=== PATIENT | female | born 1945 | race Caucasian/White ===

== ENCOUNTER 2016-08-23 16:27 | Emergency (ER) | payer OTHER ==
[~2016-08-23] VITALS: Ht 165.1 cm; Wt 96.0 kg
[~2016-08-23 16:27] MED LIST: ASPI81TA82 PO; CANA100T; CYCL-36 PO; FLAG250T PO; IBUP-232 PO; OMEP20TA39 PO; ZOCO40TA PO
[2016-08-23 16:29] VITALS: BP 136/71; PULSE 107; RESP 15; TEMP 97.5; O2SAT 99
--- NOTE | 2016-08-23 16:37 | PD ---
Physical Exam Time Seen by Provider: 16:36 Narrative 70 y/o female here with nausea/vomiting for 2 months. Several pound weight loss. Vital signs reviewed. Seen at triage desk. Awaiting bed placement. Data Data Last Documented VS Vital Signs Date Time Temp Pulse Resp B/P Pulse Ox O2 Delivery O2 Flow Rate FiO2 08/23/16 16:29 97.5 107 15 136/71 99 MDM Medical Record Reviewed: Yes Supervised Visit with HALINA: Thee Mendez August 23, 2016 16:37
[2016-08-23] MEDS ORDERED: OMEP20TA PO (17:56)
[2016-08-23] MEDS ORDERED: CANA300T PO (17:56)
[2016-08-23] MEDS ORDERED: SIMV40TA PO (17:56)
[2016-08-23] MEDS ORDERED: SODIUM CHLORIDE 0.9% FLUSH 10 ML FLUSH IV FLUSH PRN (18:15)
[2016-08-23] MEDS ORDERED: ONDANSETRON HCL 4 MG/2 ML VIAL IVP ONE (18:15)
--- NOTE | 2016-08-23 18:21 | PD ---
HPI Chief Complaint: GI Complaint Time Seen by Provider: 17:52 Travel History International Travel<30 days: No Contact w/Intl Traveler<30days: No Traveled to known affect area: No History of Present Illness HPI The patient is a 70-year-old female who presents to the emergency department for nausea, vomiting, weight loss. The patient states her symptoms started in June after she was switched from metformin to Invokana for her diabetes. The patient states metformin caused her diarrhea so they change medications. The patient states she has had approximately a 23 pound weight loss over the last month and a half. The patient was evaluated by her primary physician, Dr. Dickens, who ordered outpatient labs and ultrasound of the abdomen. The patient thinks that some of her labs were "elevated ", but does not know specific labs or numbers. The patient also states he ultrasound of her abdomen revealed a "fatty liver ", but no other findings. The patient does have a history of previous cholecystectomy, appendectomy, hysterectomy, and section 2. The patient denies any known history pancreatitis, does have a family history of pancreatic cancer and ovarian cancer. PFSH Past Medical History Cancer: Yes (SKIN) High Cholesterol: Yes Diabetes: Yes Patient Takes Glucophage: No GERD: Yes ?: Not Past Surgical History Appendectomy: Yes Cholecystectomy: Yes Hysterectomy: Yes Other Surgery: Yes (LEFT MAXILLARY GLAND REMOVED) Social History Alcohol Use: Yes (OCC) Tobacco Use: No Substance Use: No (hx of etoh abuse, quit 1982) Allergies-Medications (Allergen,Severity, Reaction): Coded Allergies: Asacol (Verified Allergy, Severe, Anaphylaxis, 08/23/16) Metformin (Verified Allergy, Severe, DIARRHEA, 08/23/16) Penicillin (Verified Allergy, Intermediate, HIVES, 08/23/16) Sulfa (Verified Allergy, Intermediate, HIVES, 08/23/16) Codeine (Verified Allergy, Mild, UNKNOWN, 08/23/16) Reported Meds & Prescriptions Reported Meds & Active Scripts Active Zofran Odt (Ondansetron Odt) 4 Mg Tab 4 Mg SL Q6HR PRN Keflex (Cephalexin) 500 Mg Cap 500 Mg PO Q8H Reported Omeprazole 20 Mg Tab 20 Mg PO DAILY Simvastatin 40 Mg Tab 40 Mg PO HS Invokana (Canagliflozin) 300 Mg Tab 300 Mg PO DAILY Take before 1st meal of day. Review of Systems Except as stated in HPI: all other systems reviewed are Neg General / Constitutional: Positive: Weight Loss, No: Fever HENT: No: Lightheadedness Respiratory: No: Shortness of Breath Gastrointestinal: Positive: Nausea, Vomiting, Abdominal Pain, Loss of Appetite , No: Diarrhea, Constipation, Changes in Bowel Habits Genitourinary: No: Dysuria Musculoskeletal: No: Weakness Neurologic: No: Weakness, Dizziness Physical Exam Narrative GENERAL: Awake, alert, very pleasant 70-year-old female who appears her stated age and is in no acute respiratory distress. SKIN: Focused skin assessment warm/dry. HEAD: Atraumatic. Normocephalic. EYES: Pupils equal and round. No scleral icterus. No injection or drainage. ENT: No nasal bleeding or discharge. Dry mucous membranes.. NECK: Trachea midline. No JVD. CARDIOVASCULAR: Regular, tachycardic with a heart rate of 105. RESPIRATORY: No accessory muscle use. Clear to auscultation. Breath sounds equal bilaterally. GASTROINTESTINAL: Abdomen soft, non-tender, nondistended. No rebound tenderness. No guarding or rigidity. MUSCULOSKELETAL: No obvious deformities. No clubbing. No cyanosis. No edema. NEUROLOGICAL: Awake and alert. No obvious cranial nerve deficits. Motor grossly within normal limits. Normal speech. PSYCHIATRIC: Appropriate mood and affect; insight and judgment normal. Data Data Last Documented VS Vital Signs Date Time Temp Pulse Resp B/P Pulse Ox O2 Delivery O2 Flow Rate FiO2 08/23/16 20:55 73 20 129/66 95 08/23/16 20:09 Room Air 08/23/16 16:29 97.5 Orders Complete Blood Count With Diff (08/23/16 18:15) Comprehensive Metabolic Panel (08/23/16 18:15) Lipase (08/23/16 18:15) Lactic Acid (08/23/16 18:15) Urinalysis - C+S If Indicated (08/23/16 18:15) Ct Abd/Pel W Iv Contrast(Rout) (08/23/16 18:15) Iv Access Insert/Monitor (08/23/16 18:15) Ecg Monitoring (08/23/16 18:15) Oximetry (08/23/16 18:15) Ondansetron Inj (Zofran Inj) (08/23/16 18:15) Sodium Chloride 0.9% Flush (Ns Flush) (08/23/16 18:15) Urine Culture (08/23/16 19:00) Ceftriaxone Inj (Rocephin Inj) (08/23/16 19:45) Iohexol 350 Inj (Omnipaque 350 Inj) (08/23/16 19:55) Labs Laboratory Tests Test 08/23/16 08/23/16 18:38 19:00 White Blood Count 11.4 TH/MM3 Red Blood Count 5.38 MIL/MM3 Hemoglobin 14.9 GM/DL Hematocrit 46.1 % Mean Corpuscular Volume 85.5 FL Mean Corpuscular Hemoglobin 27.6 PG Mean Corpuscular Hemoglobin 32.3 % Concent Red Cell Distribution Width 14.2 % Platelet Count 293 TH/MM3 Mean Platelet Volume 9.5 FL Neutrophils (%) (Auto) 76.9 % Lymphocytes (%) (Auto) 16.3 % Monocytes (%) (Auto) 5.5 % Eosinophils (%) (Auto) 0.4 % Basophils (%) (Auto) 0.9 % Neutrophils # (Auto) 8.8 TH/MM3 Lymphocytes # (Auto) 1.9 TH/MM3 Monocytes # (Auto) 0.6 TH/MM3 Eosinophils # (Auto) 0.0 TH/MM3 Basophils # (Auto) 0.1 TH/MM3 CBC Comment DIFF FINAL Differential Comment Sodium Level 138 MEQ/L Potassium Level 3.7 MEQ/L Chloride Level 100 MEQ/L Carbon Dioxide Level 27.0 MEQ/L Anion Gap 11 MEQ/L Blood Urea Nitrogen 19 MG/DL Creatinine 1.17 MG/DL Estimat Glomerular Filtration 46 ML/MIN Rate Random Glucose 264 MG/DL Lactic Acid Level 1.4 mmol/L Calcium Level 8.9 MG/DL Total Bilirubin 0.5 MG/DL Aspartate Amino Transf 34 U/L (AST/SGOT) Alanine Aminotransferase 42 U/L (ALT/SGPT) Alkaline Phosphatase 157 U/L Total Protein 8.3 GM/DL Albumin 3.8 GM/DL Lipase 122 U/L Urine Color LIGHT-YELLOW Urine Turbidity CLEAR Urine pH 5.5 Urine Specific [place] 1.040 Urine Protein NEG mg/dL Urine Glucose (UA) 1000 mg/dL Urine Ketones TRACE mg/dL Urine Occult Blood NEG Urine Nitrite POS Urine Bilirubin NEG Urine Urobilinogen LESS THAN 2.0 MG/DL Urine Leukocyte Esterase NEG Urine RBC 4 /hpf Urine WBC 1 /hpf Urine Squamous Epithelial 3 /hpf Cells Urine Bacteria MANY /hpf Microscopic Urinalysis Comment CULTURE INDICATED MDM Medical Decision Making Medical Screen Exam Complete: Yes Emergency Medical Condition: Yes Medical Record Reviewed: Yes Differential Diagnosis Differential diagnosis includes gastritis, peptic ulcer disease, gastroparesis, retained biliary stone, pancreatic cancer, ovarian cancer, IBS, dehydration, electrolyte abnormality. Narrative Course IV was established, labs are drawn and sent, and the patient was placed on cardiac telemetry monitoring and continuous pulse oximetry monitoring. The patient was administered Zofran and IV fluids. CT of the abdomen and pelvis with IV and by mouth contrast was ordered to evaluate for possible pancreatic cancer and/or gastric cancers patient's symptoms been ongoing for 6 weeks with significant weight loss. The patient was signed out to the oncoming physician, Dr. Nava at 7 PM. Diagnosis Primary Impression: Nausea & vomiting Qualified Code: R11.2 - Nausea and vomiting, intractability of vomiting not specified, unspecified vomiting type Additional Impression: Unintentional weight loss Scripts Ondansetron Odt (Zofran Odt)4 Mg Tab4 Mg SL Q6HR PRN (Nausea/Vomiting) #30 TAB Ref 0 Prov:Daysi Nava MD 08/23/16 Cephalexin (Keflex)500 Mg [id number] Mg PO Q8H #30 CAP Ref 0 Prov:Daysi Nava MD 08/23/16 Condition: Stable Tyron Garcia MD August 23, 2016 18:21
[2016-08-23 18:41] VITALS: BP 155/66; PULSE 89; RESP 17; O2SAT 96
[2016-08-23 18:57] LABS: AUTOMATED NEUTROPHIL # 8.8 TH/MM3 (1.8-7.7); BASOPHIL # 0.1 TH/MM3 (0-0.2); BASOPHIL % 0.9 % (0.0-2.0); EOSINOPHIL % 0.4 % (0.0-4.0); HEMATOCRIT 46.1 % (35.0-46.0); HEMO FLAGS DIFF FINAL; LYMPH % 16.3 % (9.0-44.0); LYMPHOCYTE # 1.9 TH/MM3 (1.0-4.8); MEAN CELL VOLUME 85.5 FL (80.0-100.0); MEAN CORPUSCULAR HEMOGLOBIN 27.6 PG (27.0-34.0); MEAN CORPUSCULAR HGB CONC 32.3 % (32.0-36.0); MONO % 5.5 % (0.0-8.0); NEUT % 76.9 % (16.0-70.0); PLATELET COUNT 293 TH/MM3 (150-450); RED BLOOD COUNT 5.38 MIL/MM3 (4.00-5.30); RED CELL DISTRIBUTION WIDTH 14.2 % (11.6-17.2); WHITE BLOOD COUNT 11.4 TH/MM3 (4.0-11.0)
[2016-08-23 19:06] LABS: ANION GAP 11 MEQ/L (5-15); AST (GOT) 34 U/L (15-37); BLOOD UREA NITROGEN 19 MG/DL (7-18); CHLORIDE 100 MEQ/L (98-107); GLOMERULAR FILTRATION RATE 46 ML/MIN (>89); POTASSIUM 3.7 MEQ/L (3.5-5.1); SODIUM (NA) 138 MEQ/L (136-145)
[2016-08-23 19:09] LABS: ALKALINE PHOSPHATASE 157 U/L (45-117); ALT (GPT) 42 U/L (10-53); TOTAL BILIRUBIN ADULT 0.5 MG/DL (0.2-1.0)
[2016-08-23 19:25] LABS: BACTERIA, URINE MANY /hpf; BLOOD, URINE NEG (NEG); COMMENT (UR) CULTURE INDICATED; CULTURE IF INDICATED CULTURE INDICATED; GLUCOSE,URINE 1000 mg/dL (NEG); KETONE, URINE TRACE mg/dL (NEG); PH, URINE 5.5 (5.0-8.5); SQUAMOUS EPITHELIAL CELL URINE 3 /hpf (0-5); URINE COLOR LIGHT-YELLOW (YELLW/STRAW)
[2016-08-23 19:26] LABS: NITRITE,URINE POS (NEG)
[2016-08-23] MEDS ORDERED: cefTRIAXone INJ 1,000 MG in SODIUM CHLORIDE 0.9% INJ 100 ML IV ONE (19:45)
[2016-08-23] MEDS ORDERED: IOHEXOL 350 MG/ML 10 ML VIAL (for RAD DIAG) IV ONE (19:55)
[2016-08-23 20:07] VITALS: BP 142/92; PULSE 87; RESP 20; O2SAT 95
[2016-08-23 20:09] VITALS: BP 142/92; PULSE 90; RESP 20; O2SAT 98
--- NOTE | 2016-08-23 20:14 | RADRPT ---
EXAM DATE/TIME: 08/23/2016 19:51 [facility] COMPARISON: CT ABDOMEN & PELVIS W CONTRAST, February 22, 2014, 10:46. INDICATIONS : Abdomen pain with vomiting. IV CONTRAST: 95 cc Omnipaque 350 (iohexol) IV ORAL CONTRAST: No oral contrast ingested. RADIATION DOSE: 13.57 CTDIvol (mGy) MEDICAL HISTORY : Diabetes mellitus type 2. SURGICAL HISTORY : Appendectomy. Cholecystectomy.Hysterectomy. ENCOUNTER: Initial ACUITY: 1 month PAIN SCALE: 4/10 LOCATION: abdomen TECHNIQUE: Volumetric scanning of the abdomen and pelvis was performed. Using automated exposure control and ad justment of the mA and/or kV according to patient size, radiation dose was kept as low as reasonably achievable to obtain optimal diagnostic quality images. FINDINGS: LOWER LUNGS: The visualized lower lungs are clear. LIVER: Homogeneous density without lesion. There is no dilation of the biliary tree. Moderate hepatic stea tosis is present. The patient is status post cholecystectomy. SPLEEN: Normal size without lesion. PANCREAS: Within normal limits. KIDNEYS: Normal in size and shape. There is no solid mass, stone or hydronephrosis. There are small simple ap pearing cysts. ADRENAL GLANDS: Within normal limits. VASCULAR: There is no aortic aneurysm. BOWEL/MESENTERY: There are multiple loops of nondilated air-containing small bowel with several small air-fluid levels . There is no free air or mass effect. There is no drainable fluid collection. The colon is unremarka ble. ABDOMINAL WALL: Within normal limits. RETROPERITONEUM: There is no lymphadenopathy. BLADDER: No wall thickening or mass. REPRODUCTIVE: Within normal limits. INGUINAL: There is no lymphadenopathy or hernia. MUSCULOSKELETAL: Within normal limits for patient age. CONCLUSION: 1. Mildly nonspecific, nonobstructive bowel gas pattern which may represent a mild ileus and/or gastr oenteritis. 2. Moderate hepatic steatosis. 3. Status post cholecystectomy. Vishal Swanson MD on August 23, 2016 at 20:09 Board Certified Radiologist. This report was verified electronically.
[2016-08-23] MEDS ORDERED: ZOFR4TAB3 SL (20:24)
[2016-08-23] MEDS ORDERED: CEPH-460 PO (20:24)
--- NOTE | 2016-08-23 20:24 | PD ---
Physical Exam Date Seen by Provider: August 23, 2016 Narrative I received this patient sign out at [address] of her abdomen and pelvis. Patient was being evaluated by Dr. Garcia for nausea and vomiting associated with a 23 pound weight loss in the past 6 weeks. Please see his records for more details. Patient reports that she is feeling much better since she has been medicated. She reports no further nausea or vomiting. Data Data Last Documented VS Vital Signs Date Time Temp Pulse Resp B/P Pulse Ox O2 Delivery O2 Flow Rate FiO2 08/23/16 20:10 16 08/23/16 20:09 90 142/92 98 Room Air 08/23/16 16:29 97.5 Orders Complete Blood Count With Diff (08/23/16 18:15) Comprehensive Metabolic Panel (08/23/16 18:15) Lipase (08/23/16 18:15) Lactic Acid (08/23/16 18:15) Urinalysis - C+S If Indicated (08/23/16 18:15) Ct Abd/Pel W Iv Contrast(Rout) (08/23/16 18:15) Iv Access Insert/Monitor (08/23/16 18:15) Ecg Monitoring (08/23/16 18:15) Oximetry (08/23/16 18:15) Ondansetron Inj (Zofran Inj) (08/23/16 18:15) Sodium Chloride 0.9% Flush (Ns Flush) (08/23/16 18:15) Urine Culture (08/23/16 19:00) Ceftriaxone Inj (Rocephin Inj) (08/23/16 19:45) Iohexol 350 Inj (Omnipaque 350 Inj) (08/23/16 19:55) Labs Laboratory Tests Test 08/23/16 08/23/16 18:38 19:00 White Blood Count 11.4 TH/MM3 Red Blood Count 5.38 MIL/MM3 Hemoglobin 14.9 GM/DL Hematocrit 46.1 % Mean Corpuscular Volume 85.5 FL Mean Corpuscular Hemoglobin 27.6 PG Mean Corpuscular Hemoglobin 32.3 % Concent Red Cell Distribution Width 14.2 % Platelet Count 293 TH/MM3 Mean Platelet Volume 9.5 FL Neutrophils (%) (Auto) 76.9 % Lymphocytes (%) (Auto) 16.3 % Monocytes (%) (Auto) 5.5 % Eosinophils (%) (Auto) 0.4 % Basophils (%) (Auto) 0.9 % Neutrophils # (Auto) 8.8 TH/MM3 Lymphocytes # (Auto) 1.9 TH/MM3 Monocytes # (Auto) 0.6 TH/MM3 Eosinophils # (Auto) 0.0 TH/MM3 Basophils # (Auto) 0.1 TH/MM3 CBC Comment DIFF FINAL Differential Comment Sodium Level 138 MEQ/L Potassium Level 3.7 MEQ/L Chloride Level 100 MEQ/L Carbon Dioxide Level 27.0 MEQ/L Anion Gap 11 MEQ/L Blood Urea Nitrogen 19 MG/DL Creatinine 1.17 MG/DL Estimat Glomerular Filtration 46 ML/MIN Rate Random Glucose 264 MG/DL Lactic Acid Level 1.4 mmol/L Calcium Level 8.9 MG/DL Total Bilirubin 0.5 MG/DL Aspartate Amino Transf 34 U/L (AST/SGOT) Alanine Aminotransferase 42 U/L (ALT/SGPT) Alkaline Phosphatase 157 U/L Total Protein 8.3 GM/DL Albumin 3.8 GM/DL Lipase 122 U/L Urine Color LIGHT-YELLOW Urine Turbidity CLEAR Urine pH 5.5 Urine Specific [place] 1.040 Urine Protein NEG mg/dL Urine Glucose (UA) 1000 mg/dL Urine Ketones TRACE mg/dL Urine Occult Blood NEG Urine Nitrite POS Urine Bilirubin NEG Urine Urobilinogen LESS THAN 2.0 MG/DL Urine Leukocyte Esterase NEG Urine RBC 4 /hpf Urine WBC 1 /hpf Urine Squamous Epithelial 3 /hpf Cells Urine Bacteria MANY /hpf Microscopic Urinalysis Comment CULTURE INDICATED MDM Supervised Visit with HALINA: No Narrative Course CBC & BMP Diagram 08/23/16 18:38 Last Impressions Abdomen/Pelvis CT 08/23/165 Signed Impressions: Service Date/Time: Tuesday, August 23, 2016 19:51 - CONCLUSION: 1. Mildly nonspecific, nonobstructive bowel gas pattern which may represent a mild ileus and/or gastroenteritis. 2. Moderate hepatic steatosis. 3. Status post cholecystectomy. Vishal Swanson MD LFTs and lipase are unremarkable. Lactic acid is normal. UA is compatible with UTI. Patient reports she is feeling better and will like to go home. I will give her prescriptions for Keflex for UTI and Zofran for vomiting. She is to follow- up with her primary care provider. Diagnosis Primary Impression: Nausea & vomiting Qualified Code: R11.2 - Nausea and vomiting, intractability of vomiting not specified, unspecified vomiting type Additional Impressions: Unintentional weight loss UTI (urinary tract infection) Qualified Code: N30.00 - Acute cystitis without hematuria Patient Instructions: Acute Nausea and Vomiting (DC), General Instructions, Urinary Tract Infection in Women (DC) Med/Other Pt SpecificInfo: Prescription(s) given Scripts Ondansetron Odt (Zofran Odt)4 Mg Tab4 Mg SL Q6HR PRN (Nausea/Vomiting) #30 TAB Ref 0 Prov:Daysi Nava MD 08/23/16 Cephalexin (Keflex)500 Mg [id number] Mg PO Q8H #30 CAP Ref 0 Prov:Daysi Nava MD 08/23/16 Disposition: 01 DISCHARGE HOME Condition: Stable Daysi Nava MD August 23, 2016 20:24
[2016-08-23 20:55] VITALS: BP 129/66
== END 2016-08-23 21:05 | disposition home or self-care (01) ==
LOC: NEPE 16:27
DX: N30.00 Acute cystitis without hematuria (principal); B96.20 Unspecified Escherichia coli [E. coli] as the cause of diseases classified elsewhere; R11.2 Nausea with vomiting, unspecified; R63.4 Abnormal weight loss; E11.9 Type 2 diabetes mellitus without complications; Z79.84 Long term (current) use of oral hypoglycemic drugs; Z79.899 Other long term (current) drug therapy
CPT/HCPCS: 74177; 80053; 81001; 83605; 83690; 85025; 87077; 87086; 87186; 96365; 96375; 97803; 99284; J0696; J2405; Q9967